=== PATIENT | female | born 1945 | race Caucasian/White ===

== ENCOUNTER → 2016-09-27 | Outpatient (CLI) | payer OTHER, MEDICARE | LOC: FIMAGING 11:20 | PROVIDERS: ATTEND Internal Medicine Nephrology | DX: Z01.810 Encounter for preprocedural cardiovascular examination (principal); I25.10 Atherosclerotic heart disease of native coronary artery without angina pectoris; N18.5 Chronic kidney disease, stage 5 ==

== ENCOUNTER → 2017-03-05 | Outpatient (CLI) | payer OTHER, MEDICARE | LOC: FIMAGING 09:41 | PROVIDERS: ATTEND Family Medicine | DX: Z12.31 Encounter for screening mammogram for malignant neoplasm of breast (principal); Z85.3 Personal history of malignant neoplasm of breast; Z90.11 Acquired absence of right breast and nipple | CPT/HCPCS: G0202-52 ==

== ENCOUNTER 2017-04-03 07:48 | Observation (INO) | payer OTHER, MEDICARE ==
[2017-04-03] MEDS ORDERED: FAMOTIDINE 20 MG TAB PO ONE ×2 (07:55→09:34)
[2017-04-03] MEDS ORDERED: DIAZEPAM 5 MG TAB PO ONE ×2 (07:55→09:34)
[2017-04-03] MEDS ORDERED: diphenhydrAMINE 25 MG CAP PO ONE ×3 (07:55→09:34)
[2017-04-03] MEDS ORDERED: ASPIRIN EC 325 MG TAB PO ONE ×3 (07:55→09:34)
[2017-04-03] MEDS ORDERED: NS 1,000 ML IV ONE (07:55)
[2017-04-03 08:28] LABS: PLATELET COUNT 158 10^3/uL (150-400)
[2017-04-03 08:51] LABS: INR 1.04 (0.83-1.16); PROTIME(PATIENT) 13.5 SEC (12.0-15.0)
--- NOTE | 2017-04-03 08:51 | CPEKG ---
Heart Rate: 60 RR Interval: 1000 P-R Interval: 160 QRSD Interval: 64 QT Interval: 480 QTC Interval: 480 P [place]: 38 QRS [place]: 34 T Wave [place]: 62 EKG Severity - NORMAL ECG - EKG Impression: SINUS RHYTHM Electronically Signed By: Johnathan Ibrahim 03-Apr-2017 17:34:22
[2017-04-03] MEDS ORDERED: FAMOTIDINE 20 MG TAB ONE (09:00)
[2017-04-03] MEDS ORDERED: DIAZEPAM 5 MG TAB ONE (09:00)
[2017-04-03] MEDS ORDERED: LIDOCAINE 1% 300 MG/30 ML SDV ONE (09:20)
[2017-04-03] MEDS ORDERED: fentaNYL 100 MCG/2 ML INJ ONE (09:21)
[2017-04-03] MEDS ORDERED: IOPAMIDOL (ISOVUE-370) 150 ML BTL IV ONE ×2 (09:21→10:58)
[2017-04-03] MEDS ORDERED: MIDAZOLAM 2 MG/2 ML VIAL ONE (09:21)
[2017-04-03] MEDS ORDERED: ACETAMINOPHEN 325 MG TAB PO PRN (09:34)
[2017-04-03] MEDS ORDERED: TEMAZEPAM 15 MG CAP PO PRN (09:34)
[2017-04-03] MEDS ORDERED: NITROGLYCERIN 0.4 MG BTL SL PRN (09:34)
--- NOTE | 2017-04-03 09:34 | PDGENHP ---
History & Physical Chief Complaint: esrd History of Present Illness: esrd Pertinent Past, Social, Family History: attached Relevant Physical Exam: s1 s2 soft sys m llsb. fistula l arm . chest port Cardiorespiratory Assessment: ready
--- NOTE | 2017-04-03 09:36 | PDPROPOC ---
Sedation Plan of Care ASA Classification: ASA 1 Planned drugs: fentanyl, midazolam Mallampati Score: Class 1 Mallampati Reference Image: Patient passed 3-3-2 rule?: Yes
--- NOTE | 2017-04-03 09:36 | PDPROPOC ---
Sedation Plan of Care ASA Classification: ASA 1 Planned drugs: fentanyl, midazolam Mallampati Score: Class 1 Mallampati Reference Image: Patient passed 3-3-2 rule?: Yes
--- NOTE | 2017-04-03 09:36 | PDPROPOC ---
Sedation Plan of Care ASA Classification: ASA 1 Planned drugs: fentanyl, midazolam Mallampati Score: Class 1 Mallampati Reference Image: Patient passed 3-3-2 rule?: Yes
[2017-04-03] MEDS ORDERED: NS 1,000 ML IV SCH (09:45)
[2017-04-03] MEDS ORDERED: BIVALIRUDIN 250 MG/5 ML VIAL IV ONE (10:45)
[2017-04-03] MEDS ORDERED: HEPARIN 10,000 UNIT/10 ML MDV ONE (10:45)
[2017-04-03] MEDS ORDERED: CLOPIDOGREL BISULFATE 75 MG TAB ONE (11:20)
[2017-04-03] MEDS ORDERED: ATROPINE SULFATE 1 MG/10 ML SYR IVP PRN (11:41)
[2017-04-03] MEDS ORDERED: CLOPIDOGREL BISULFATE 75 MG TAB PO ONE (11:41)
[2017-04-03] MEDS ORDERED: ONDANSETRON 4 MG/2 ML VIAL IVP PRN (11:41)
--- NOTE | 2017-04-03 11:47 | PDCTREPORT ---
Cardiothoracic Procedure Rpt Cardiothoracic Procedure Report: Procedure: PCI and stenting of the proximal LAD. Addendum Indications: Pre renal transplant, I am asked by my partner Dr. Barone to perform PCI and stenting of the proximal LAD. I have reviewed diagnostic angiograms. After reviewing diagnostic angiograms it was elected to proceed with elective PCI. 6 Luxembourg[place] sheath was exchanged for a 7 [place]bourg[place] sheath. Right femoral arteriogram was performed. Patient was administered 8000 units of heparin. Therapeutic ACT was confirmed. Using a 7 [place]bourg[place] JL 3.5 guiding catheter left main coronary selectively intubated. Using a 0.014 luge wire the LAD stenosis was crossed and the wire placed in the distal vessel. Lesion was pre-dilated with a 2 mm balloon. Repeat angiogram showed INGRID grade 3 flow. A 2.75 x 38 mm synergy stent was placed on the wire. It was attempted to cross the lesion but would not cross. A 0.014 mailman wire was used as a poonam. This did not improve deliver ability. A 3 mm balloon was then used to pre dilate the lesion. The stent easily passed. The Mailman wire was withdrawn. Stent position was confirmed. It was deployed using a single inflation. Same stent balloon was then used to pre dilate the proximal segment. A 3.0 x 16 mm synergy stent was placed on the wire and positioned appropriately. Was deployed using a single inflation. Stent balloon was used to post dilate the overlapping segment. Orthogonal angiogram showed INGRID grade 3 flow. Femoral arteriotomy was closed using Perclose. For complete details of the procedure please see attached computer report Contrast 160 cc. Sedation: 4 mg Versed 100 mcg of fentanyl, 25 mg of Benadryl. Radiation 15.8 minutes, 643 mGy. Conclusion: Successful PCI and stenting of the proximal LAD. Patient be given dual antiplatelet therapy with Plavix and aspirin. Cares return to Dr. Barone. Patient Problems: Problems Problem Status Onset Status post insertion of drug-eluting stent into left anterior descending (LAD) artery Acute Coronary artery disease Acute
--- NOTE | 2017-04-03 12:09 | CPIP ---
[f rep st] INVASIVE CARDIAC PROCEDURE DATE OF PROCEDURE: 04/03/2017 PROCEDURE: Left heart catheterization with left ventriculogram and right and left coronary arteriogr am. COMPLICATIONS: None. CONDITION: At end of study, excellent. INDICATION: The patient is on the renal transplant list at the [facility] and needs coronary angiogr aphy clearance prior to being considered for this transplantation. The patient has no angina. The patient has long-standing many risk factors for coronary disease including many years of diabetes mellitus, which has been controlled with oral agents, and recently she actually was able to stop her oral agent when she has been being dialyzed. She also has hypertension and hyperlipidemia. PROCEDURE: 1. Left heart catheterization. a. Left ventricular end-diastolic pressure 15. b. No aortic stenosis. 2. Left ventriculogram. a. Normal left ventricular systolic function. No regional wall motion abnormalities. b. No significant mitral regurgitation. 3. Left and right coronary arteriogram. a. Main coronary artery is normal. b. The left anterior descending artery had 85% proximal disease in the distal segment of the proxima l part of the vessel and then diffuse significant disease after that followed up by an 80% lesion in the more distal segment of the vessel. Second diagonal branch of the LAD is quite large and has a 50 % stenosis present. c. Circumflex coronary artery is a large vessel and has no high-grade obstruction. d. Right coronary artery has diffuse intimal disease present, as well, without high-grade obstructio n present. COMPLICATIONS: At the end the study, none. RECOMMENDATION: Percutaneous intervention. I had spoken with the patient before the procedure and on multiple occasions in the outpatient jony avila about the fact that if we found disease that needed intervention, that would delay her transplantat ion possibly and would certainly delay a period of time for consideration for transplantation. She i s aware of this and wanted to go ahead with our standard of care for the disease that we might find. She did understand that if she needed bypass surgery, she would have time to discuss that. I certainly consider bypass surgery with her significant LAD disease in this diabetic patient, but gi vishnu her very good LV systolic function, I felt like it was a very good choice for her to go ahead wit h percutaneous intervention instead of bypass surgery. She is not on metformin right now, but her blood sugars are not controlled; her blood sugar when she came in was 156. All her questions have been answered. /[id number]/MODL
--- NOTE | 2017-04-03 12:30 | CPEKG ---
Heart Rate: 59 RR Interval: 1017 P-R Interval: 168 QRSD Interval: 62 QT Interval: 476 QTC Interval: 472 P [place]: 60 QRS [place]: 43 T Wave [place]: 62 EKG Severity - NORMAL ECG - EKG Impression: SINUS RHYTHM Electronically Signed By: Johnathan Ibrahim 03-Apr-2017 17:34:26
--- NOTE | 2017-04-03 12:30 | CPEKG ---
Heart Rate: 59 RR Interval: 1017 P-R Interval: 168 QRSD Interval: 62 QT Interval: 476 QTC Interval: 472 P [place]: 60 QRS [place]: 43 T Wave [place]: 62 EKG Severity - NORMAL ECG - EKG Impression: SINUS RHYTHM Electronically Signed By: Johnathan Ibrahim 03-Apr-2017 17:34:26
[2017-04-03] MEDS ORDERED: HEPARIN 50,000 UNIT/10 ML VIAL ONE (19:32)
[2017-04-04] MEDS ORDERED: FERROUS SULFATE 325 MG TAB PO SCH (08:00)
[2017-04-04 08:08] VITALS: BP 149/66; PULSE 72; RESP 18; TEMP 97.8; O2SAT 95
[2017-04-04] MEDS ORDERED: ASPIRIN EC 325 MG TAB PO SCH (09:00)
[2017-04-04] MEDS ORDERED: CLOPIDOGREL BISULFATE 75 MG TAB PO SCH (09:00)
[2017-04-04] MEDS ORDERED: NEPHROVITE FOLIC ACID/VIT B&C 1 TAB PO SCH (09:00)
[2017-04-04] MEDS ORDERED: METOPROLOL TARTRATE 25 MG TAB PO SCH (09:00)
[2017-04-04] MEDS ORDERED: FUROSEMIDE 80 MG TAB PO SCH (09:00)
--- NOTE | 2017-04-04 09:37 | ASMTCASEMG ---
Living Arrangements What is your living Answers: Alone arrangement? Who do you live with? Type Of Residence What kind of residence do Answers: House you live in? Discharge Plan Comments Coordination Status Comments Notes: Pt is a 71 y/o female admitted and had two stents placed. Pt will d/c independent and have outpatient cardiac rehab. CM available for d/c needs, should they arise. Date Signed: 04/04/2017 09:36 AM Electronically Signed By:YOEL Mckeon
[2017-04-04 10:50] LABS: HEPATITIS B SURFACE ANTIGEN NEGATIVE (NEGATIVE)
--- NOTE | 2017-04-04 10:50 | CPEKG ---
Heart Rate: 66 RR Interval: 909 P-R Interval: 160 QRSD Interval: 64 QT Interval: 456 QTC Interval: 478 P [place]: 55 QRS [place]: 51 T Wave [place]: 78 EKG Severity - OTHERWISE NORMAL ECG - EKG Impression: SINUS RHYTHM EKG Impression: ATRIAL PREMATURE COMPLEX Electronically Signed By: Johnathan Ibrahim 04-Apr-2017 10:56:58
--- NOTE | 2017-04-04 10:50 | CPEKG ---
Heart Rate: 66 RR Interval: 909 P-R Interval: 160 QRSD Interval: 64 QT Interval: 456 QTC Interval: 478 P [place]: 55 QRS [place]: 51 T Wave [place]: 78 EKG Severity - OTHERWISE NORMAL ECG - EKG Impression: SINUS RHYTHM EKG Impression: ATRIAL PREMATURE COMPLEX Electronically Signed By: Johnathan Ibrahim 04-Apr-2017 10:56:58
[2017-04-04 10:53] LABS: PLATELET COUNT 149 10^3/uL (150-400)
[2017-04-04 11:07] LABS: HEPATITIS B CORE AB TOTAL NEGATIVE (NEGATIVE)
--- NOTE | 2017-04-04 11:32 | SOAPPROG ---
KAYLA Progress Note Assessment/Plan: Assessment:Plan: ESRD-undergoes dialysis MWF at the [facility] [place] under the care of Dr. Santiago -next Hd tomorrow -I will stop the heparin she gets with dialysis due to the addition of Plavix -she is also on ASA -she understands that she will be inactive on the transplant list while she remains on Plavix -discussed with Cardiology -dialysis unit called with new orders Access-patient declines to have her tunneled catheter removed at this time -she would like to wait two weeks -risks of maintaining catheter reviewed with patient Dispo-home today 04/04/17 11:29 Subjective: stable overnite Objective: Vital Signs Temp Pulse Resp BP Pulse Ox 36.6 C 72 18 149/66 H 95 04/04/17 08:00 04/04/17 08:00 04/04/17 08:00 04/04/17 08:00 04/04/17 08:00 Laboratory Results 04/04/17 09:25 04/04/17 09:25 04/03/17 04/04/17 04/05/17 05:59 05:59 05:59 Intake Total 640 Output Total 550 Balance 90 PT 13.5 SEC (12.0-15.0) 04/03/17 08:20 INR 1.04 (0.83-1.16) 04/03/17 08:20 Physical Exam - Physical Exam General Appearance: WD/WN, alert, no apparent distress EENT: normal ENT inspection Neck: normal inspection Respiratory: decreased breath sounds (at bases) Cardiac/Chest: regular rate, rhythm, systolic murmur Abdomen: normal bowel sounds, No distended Back: Normal inspection Skin: normal color, warm/dry Extremities: other (AVF patent), No swelling ICD10 Worksheet Patient Problems: Problems Problem Status Onset Coronary artery disease Acute Status post insertion of drug-eluting stent into left anterior descending (LAD) artery Acute
--- NOTE | 2017-04-04 14:45 | GDS ---
[f rep st] DISCHARGE SUMMARY SUPERVISING FOLLOW UP REP: Dr. Omkar Nicholas. ADMISSION DIAGNOSES: 1. Chronic kidney disease, end-stage, on hemodialysis. 2. Cardiac evaluation for candidacy for renal transplant. 3. Hyperlipidemia. 4. Hypertension. 5. Diabetes type 2. 6. Gastroesophageal reflux disease. 7. History of breast cancer. DISCHARGE DIAGNOSES: 1. Coronary artery disease. 2. Status post percutaneous coronary intervention with drug-eluting stent implantation into the left anterior descending artery. 3. Chronic renal kidney disease, end-stage, on hemodialysis. 4. Hyperlipidemia. 5. Diabetes type 2. 6. Gastroesophageal reflux disease. 7. Hypertension. 8. History of breast cancer. CONSULTATIONS DURING HOSPITALIZATION: Nephrology, [facility]. PROCEDURES DONE DURING HOSPITALIZATION: 1. Electrocardiogram. 2. Diagnostic left heart catheterization. 3. Percutaneous coronary intervention of the LAD with placement of a 2.75 x 38 Synergy ALEXEI into the proximal LAD. 4. Hemodialysis. BRIEF HISTORY: Please see History and Physical. The patient is a 71-year-old female with chronic re nal insufficiency and currently on dialysis; she is being evaluated by [facility] about pote ntially being placed on transplant list; recommendation was for cardiac evaluation with coronary neha ogram. She was evaluated by Dr. Barone, and felt to be appropriate candidate for procedure. HOSPITAL COURSE: Patient was admitted through CVC, prepped for procedure, and taken to the cardiac c atheterization lab. There, Dr. Barone performed a diagnostic left heart catheterization with the fin dingsanaz of the left anterior descending artery with an 80% proximal stenosis extending down to the mid LAD, also noted to have a secondary diagonal branch with a 50% stenosis present, circumflex was a lar ge vessel with no high-grade obstruction, RCA has diffuse minimal disease present as well without any high-grade obstruction present. LV-gram was done showing normal LV systolic function with no region al wall motion abnormalities, end-diastolic pressure was 15 mmHg. At that time, carton forming machine adjuster, Dr. Nicholas, evaluated the films with Dr. Barone, and it was decided that, due to the patient's normal LV systolic function and significant stenosis of her LA D, it was felt appropriate for her to undergo coronary catheterization. At that time, Dr. Nicholas p roceeded with intervention, in which he was able to place a 2.75 x 38 mm Synergy drug-eluting stent i nto the proximal LAD with no complications. The patient was taken back to the CVC, and ultimately ov er to the PCU, where later that afternoon, she did undergo a run of hemodialysis, and returned back w ith no complications. Overnight, the patient was noted to have a mild oozing in her right groin cath eter insertion site, which required manual pressure in which hemostasis was obtained. Throughout the night, she remained stable, she reported no episodes of chest pain or pressure, she has been up and walking in the unit without difficulties, reporting no palpitations. On continuous cardiac monitorin g, she remains in sinus rhythm with rare premature ventricular contractions, no other malignant arrhy thmias noted, or pauses. PHYSICAL EXAMINATION: Done today: GENERAL APPEARANCE: Medium built, thin female; she is alert and oriented to person, place, time, situation. Appears to be in no acute distress. VITAL SIGNS: [facility] blood pressure 149/66, heart rate of 72, respirations 18, saturating 95% on room air. Temperature 36.6 degrees Celsius. HEENT: Head is normocephalic. Lips and tongue are pink and moist with no si gns of cyanosis. Conjunctivae pink. NECK: Trachea is midline, +2 carotid pulses bilateral. No aus cultated bruits, no jugular vein distention. LUNGS: Clear to auscultation; no rhonchi, rales or whe ezes. No accessory muscle use. No intercostal muscle retraction noted. CARDIAC: Regular rate, reg ular rhythm, S1, S2; no S3, S4, gallops, rubs or murmurs noted. ABDOMEN: Soft, nontender, bowel chelsie nds x4 quadrants. No organomegaly. No palpable masses. SKIN: [place], warm, dry, no cyanosis, no clu bbing, no peripheral edema. Patient noted with an IV dialysis catheter in her left subclavian with d ressing clean, dry, and intact. VASCULAR: +2 carotids bilateral, +2 radials bilateral, +1 dorsal pe vivi and posterior tibial pulses bilateral. Cardiac catheterization insertion site, right groin site, with mild ecchymosis, a 50-cent size hematoma, with no bleeding or auscultated pulse over it. No re dness, swelling or drainage. LABORATORY STUDIES: Studies drawn today show WBC of 4.39, hemoglobin of 10.0, hematocrit 27.8, plate let count of 149. Sodium 138, potassium 4.2, chloride 98, CO2 27, BUN 22, creatinine 3.3, glucose 18 7, calcium 9.8. Total bilirubin 0.9, AST 37, ALT 36, alkaline phosphate 108, total protein 7.4, albu min 4.2. Yesterday, fasting lipid panel was drawn showing triglycerides of 416, total cholesterol 22 0, LDL unable to be calculated due to high triglycerides and total cholesterol, HDL 37. The patient also had hepatitis B antigen drawn which was negative, and hepatitis B core total antibodies which we re negative. Currently pending is hepatitis B antibody. STUDIES: Diagnostic heart catheterization and intervention as above. Dialysis as above. Morning el ectrocardiogram showing sinus rhythm, normal axis, no significant ST or T-wave abnormalities, prematu re atrial contraction. DISCHARGE DISPOSITION: Patient will be discharged home in stable condition. She is under activity r estrictions of not lifting more than 10 pounds for the next week and no strenuous activity for the ne xt 2 weeks. DISCHARGE MEDICATIONS: Please see discharge medication reconciliation sheet. Note that patient has been started on dual anti-platelet therapy with increasing her aspirin dosage to 325 mg daily, she parr s also been started on clopidogrel at 75 mg p.o. daily. Due to being on Plavix, her Nexium has been discontinued due to potential reaction with the clopidogrel, and has been placed on Protonix at 40 mg p.o. daily. She has been continued on her dosage of amlodipine, lisinopril, metoprolol and Lasix fr om home. With her significant high cholesterol and triglycerides, and with recent cardiac catheteriz ation, it is felt best that she be started on statin therapy; she had been on pravastatin in the past , reporting history of pancreatitis with needing her gallbladder removed, felt that potentially this may be partial cause. I have discussed this with Dr. Nicholas, who feels that we should attempt to s tart the patient on low-dose lovastatin at 10 mg p.o. q.h.s., with plans of her having repeated blood work done in the next 6 weeks. DISCHARGE INSTRUCTIONS: Post cardiac catheterization, percutaneous coronary intervention discharge i nstructions went over with the patient including monitoring for signs of infection, bleeding precauti ons, activity restrictions, medication compliance, and bathing precautions. The patient has a follow up appointment set next at our [place] office with myself. The patient has also been seen by Dr. Montero of [facility] today, and she is planned to undergo her regular routine dialysis on Saturday; he has asked, since being started on dual anti-platelet therapy, that no heparin to be gi vishnu during her dialysis run. At the time of discharge, patient verbalizes all instructions and has n o questions or concerns. Total time spent on discharge: Greater than 30 minutes. /[id number]/MODL
--- NOTE | 2017-04-04 14:49 | ASDISCHSUM ---
Discharge Information Plan Status:Home with No Needs Medically Cleared to Leave:04/04/2017 Discharge Date:04/04/2017 01:35 PM CM D/C Disposition:Home, Routine, Self-Care ADT D/C Disposition:Home, Routine, Self-Care Projected Discharge Date:04/04/2017 12:00 AM Transportation at D/C:None or Unknown Discharge Delay Reason: Follow-Up Date:04/04/2017 12:00 AM Discharge Slot: Final Diagnosis: Placement Information Patient Contact Information Contact Name:SHIRLEY Relationship: Address: City: [facility] Phone: [facility]/[employer] Code: Email: Financial Information Financial Class: Primary Plan Desc:MEDICARE OUTPATIENT Primary Plan Number:[id number] Secondary Plan Desc:AARP/MDR SUPPLEMENT Secondary Plan Number:[id number] Assessment Information [facility] Initial CM Assessment Living Arrangements What is your living Answers: Alone arrangement? Who do you live with? Type Of Residence What kind of residence do Answers: House you live in? Discharge Plan Comments Coordination Status Comments Notes: Pt is a 71 y/o female admitted and had two stents placed. Pt will d/c independent and have outpatient cardiac rehab. CM available for d/c needs, should they arise. Date Signed: 04/04/2017 09:36 AM Electronically Signed By:YOEL Mckeon Intervention Information Intervention Type:*LAMAR-Signed Date of Service:04/04/2017 10:29 AM Patient Type:Observation Staff Member:Marta Alcantar Hours: Discipline: Severity: Comment:
--- NOTE | 2017-04-04 14:49 | ASDISCHSUM ---
Discharge Information Plan Status:Home with No Needs Medically Cleared to Leave:04/04/2017 Discharge Date:04/04/2017 01:35 PM CM D/C Disposition:Home, Routine, Self-Care ADT D/C Disposition:Home, Routine, Self-Care Projected Discharge Date:04/04/2017 12:00 AM Transportation at D/C:None or Unknown Discharge Delay Reason: Follow-Up Date:04/04/2017 12:00 AM Discharge Slot: Final Diagnosis: Placement Information Patient Contact Information Contact Name:SHIRLEY Relationship: Address: City: [facility] Phone: [facility]/[employer] Code: Email: Financial Information Financial Class: Primary Plan Desc:MEDICARE OUTPATIENT Primary Plan Number:[id number] Secondary Plan Desc:AARP/MDR SUPPLEMENT Secondary Plan Number:[id number] Assessment Information [facility] Initial CM Assessment Living Arrangements What is your living Answers: Alone arrangement? Who do you live with? Type Of Residence What kind of residence do Answers: House you live in? Discharge Plan Comments Coordination Status Comments Notes: Pt is a 71 y/o female admitted and had two stents placed. Pt will d/c independent and have outpatient cardiac rehab. CM available for d/c needs, should they arise. Date Signed: 04/04/2017 09:36 AM Electronically Signed By:YOEL Mckeon Intervention Information Intervention Type:*LAMAR-Signed Date of Service:04/04/2017 10:29 AM Patient Type:Observation Staff Member:Marta Alcantar Hours: Discipline: Severity: Comment:
--- NOTE | 2017-04-04 14:49 | ASDISCHSUM ---
Discharge Information Plan Status:Home with No Needs Medically Cleared to Leave:04/04/2017 Discharge Date:04/04/2017 01:35 PM CM D/C Disposition:Home, Routine, Self-Care ADT D/C Disposition:Home, Routine, Self-Care Projected Discharge Date:04/04/2017 12:00 AM Transportation at D/C:None or Unknown Discharge Delay Reason: Follow-Up Date:04/04/2017 12:00 AM Discharge Slot: Final Diagnosis: Placement Information Patient Contact Information Contact Name:SHIRLEY Relationship: Address: City: [facility] Phone: [facility]/[employer] Code: Email: Financial Information Financial Class: Primary Plan Desc:MEDICARE OUTPATIENT Primary Plan Number:[id number] Secondary Plan Desc:AARP/MDR SUPPLEMENT Secondary Plan Number:[id number] Assessment Information [facility] Initial CM Assessment Living Arrangements What is your living Answers: Alone arrangement? Who do you live with? Type Of Residence What kind of residence do Answers: House you live in? Discharge Plan Comments Coordination Status Comments Notes: Pt is a 71 y/o female admitted and had two stents placed. Pt will d/c independent and have outpatient cardiac rehab. CM available for d/c needs, should they arise. Date Signed: 04/04/2017 09:36 AM Electronically Signed By:YOEL Mckeon Intervention Information Intervention Type:*LAMAR-Signed Date of Service:04/04/2017 10:29 AM Patient Type:Observation Staff Member:Marta Alcantar Hours: Discipline: Severity: Comment:
[2017-04-04] MEDS ORDERED: LISINOPRIL 20 MG TAB PO SCH (21:00)
== END 2017-04-04 13:35 | disposition home or self-care (01) ==
LOC: FCATH 07:48 → F2W 12:02
PROVIDERS: ADMIT Internal Medicine; ATTEND Internal Medicine Interventional Cardiology
PROC: 027034Z Dilation of Coronary Artery, One Artery with Drug-eluting Intraluminal Device, Percutaneous Approach (ICD-10-PCS; principal; 2017-04-03)
PROC: B2151ZZ Fluoroscopy of Left Heart using Low Osmolar Contrast (ICD-10-PCS; 2017-04-03)
PROC: B2111ZZ Fluoroscopy of Multiple Coronary Arteries using Low Osmolar Contrast (ICD-10-PCS; 2017-04-03)
PROC: 4A023N7 Measurement of Cardiac Sampling and Pressure, Left Heart, Percutaneous Approach (ICD-10-PCS; 2017-04-03)
PROC: 5A1D70Z Performance of Urinary Filtration, Intermittent, Less than 6 Hours Per Day (ICD-10-PCS; 2017-04-03)
DX: Z01.810 Encounter for preprocedural cardiovascular examination (principal); N18.6 End stage renal disease; I25.10 Atherosclerotic heart disease of native coronary artery without angina pectoris; I12.0 Hypertensive chronic kidney disease with stage 5 chronic kidney disease or end stage renal disease; E11.22 Type 2 diabetes mellitus with diabetic chronic kidney disease; E78.5 Hyperlipidemia, unspecified; K21.9 Gastro-esophageal reflux disease without esophagitis; Z85.3 Personal history of malignant neoplasm of breast; Z99.2 Dependence on renal dialysis; Z76.82 Awaiting organ transplant status
CPT/HCPCS: 93005; 93458; C1725; C1769; C1874; C1887; J1200; J1644; J2250; J3010; Q9967; 86704-90; J0583

== ENCOUNTER → 2018-03-13 | Outpatient (CLI) | payer OTHER, MEDICARE | LOC: FIMAGING 10:00 | PROVIDERS: ATTEND Family Medicine | DX: Z12.31 Encounter for screening mammogram for malignant neoplasm of breast (principal) ==

== ENCOUNTER → 2018-03-27 | Outpatient (CLI) | payer OTHER, MEDICARE | LOC: FIMAGING 10:48 | PROVIDERS: ATTEND Family Medicine | DX: Z13.820 Encounter for screening for osteoporosis (principal); M81.0 Age-related osteoporosis without current pathological fracture; Z85.3 Personal history of malignant neoplasm of breast; Z78.0 Asymptomatic menopausal state ==

== ENCOUNTER → 2018-07-03 | Outpatient (CLI) | payer OTHER, MEDICARE ==
[~2018-07-03] MED LIST: IOHEXOL 350mgI/ML (OMNIPAQUE) 150 ML BTL IV ONE
== END ==
LOC: FIMAGING 09:23
PROVIDERS: ATTEND Internal Medicine Nephrology
DX: Z76.82 Awaiting organ transplant status (principal); I70.0 Atherosclerosis of aorta; E11.22 Type 2 diabetes mellitus with diabetic chronic kidney disease; N18.9 Chronic kidney disease, unspecified; Z99.2 Dependence on renal dialysis
CPT/HCPCS: 75635; 93880; Q9967

== ENCOUNTER → 2018-07-08 | Outpatient (CLI) | payer OTHER, MEDICARE | LOC: BHFA 08:30 | PROVIDERS: ATTEND Internal Medicine Cardiovascular Disease | DX: Z01.810 Encounter for preprocedural cardiovascular examination (principal) ==

== ENCOUNTER → 2018-07-15 | Outpatient (CLI) | payer OTHER, MEDICARE | LOC: BHFA 09:00 | PROVIDERS: ATTEND Internal Medicine Cardiovascular Disease | DX: Z01.810 Encounter for preprocedural cardiovascular examination (principal) | CPT/HCPCS: 78452; 93017; A9500; J2785 ==